=== PATIENT | female | born 1935 | race Caucasian/White ===

== ENCOUNTER 2020-05-09 16:37 | Emergency (ER) | payer MEDICARE, SELFPAY ==
[2020-05-09 16:39] VITALS: BP 167/85; PULSE 67; RESP 28; TEMP 36.7; O2SAT 97; BMI 40.8
--- NOTE | 2020-05-09 17:03 | EKG12_ITS ---
Test Reason : WEAKNESS Blood Pressure : / mmHG Vent. Rate : 062 BPM Atrial Rate : 062 BPM P-R Int : 214 ms QRS Dur : 148 ms QT Int : 506 ms P-R-T Axes : 082 066 075 degrees QTc Int : 513 ms Sinus rhythm with sinus arrhythmia with 1st degree A-V block Left bundle branch block Abnormal ECG Confirmed by GREG HAJI, KELLY ([id number]), editorial cartoonist NORA CRUZ ([id number]) on 05/11/2020 9:35:18 AM Referred By: RU/UG Confirmed By:BRONWYN GARZA MD
--- NOTE | 2020-05-09 17:11 | ED.DCSUM_ITS ---
History of Present Illness Chief Complaint: Dizziness Detail of Chief Complaint: Dizziness resulting in fall and right hip pain Informant: Patient, Family Onset: Hours Context: Sudden Onset Timing: Intermittent Quality: Spinning sensation that caused fall Location: Home Current Severity: Moderate Maximum Severity: Severe Worsened by: Hip pain is worse with any type of movement. The dizziness is no longer Relieved by: Nothing Associated Symptoms: Previously described Narrative: Patient is an 84-year-old woman who was walking out of her house. She was carrying 6 glass milk jugs. She became dizzy which she described as a spinning sensation. She also states the wind caught the door. She not want a fall on the glass and landed on her right side. Squad was called because she was unable to move without causing pain. She denied head trauma. Denies loss of conscious. Denies neck pain. Denies paresthesia, anesthesia motors upper lower extremity. Denies cardiac respiratory symptoms. She is on anticoagulant for atrial fibrillation. She denies black or maroon-colored stool. She denies blood in her urine. She denies bruising easily. Prior similar symptoms: No Recent Illness/Hospitalization: No - Past Medical History (1) Past medical history of congestive heart Status: Acute (2) History of hypertension Status: Acute (3) History of atrial fibrillation Status: Acute (4) halfway current use of anticoagulant Status: Acute (5) History of hyperlipidemia Status: Acute Past Medical History - Allergies and Home Meds Allergies/Adverse Reactions: Allergies metformin Allergy (Verified 05/09/20 16:44) Angioedema Penicillins [PCN] Allergy (Verified 05/09/20 16:44) Angioedema Primary Care Physician: [facility] Doctor,Out of [NON-STAFF] - Prior records reviewed: No Surgical History: noncontributory Lives: Alone Smoking Status: Never smoker Alcohol: None Drugs: None Review of Systems General: Denies: Chills, Fever, Malaise Eyes: Denies: Visual changes - bilaterally, Blurred Vision - bilaterally, Diplo sydni ENT: Denies: Rhinorrhea, Sore throat Cardiovascular: Denies: Chest pain, Palpitations Respiratory: Denies: Dyspnea, Cough, Dyspnea on exertion Gastrointestinal: Denies: Abdominal pain, Nausea, Vomiting, Melena, Hematochezia Genitourinary: Denies: Dysuria, Hematuria, Frequency Musculoskeletal: Reports: Extremity Pain. Denies: Myalgias, Arthralgias, Neck pain, Back pain, Swelling Skin: Reports: Wounds - Status post left breast mastectomy. Patient states she noted irritation/redness of prosthesis.. Denies: Rash Neurological: Denies: Headache, Weakness, Parasthesia Endocrine: Denies: Polyuria, Polydipsia Hematologic: Reports: Easy bruising. Denies: Easy bleeding Allergy: Denies: Uticaria Physical Exam Vital Signs/Narrative: Vital Signs Temp Pulse Resp BP Pulse Ox 05/09/20 16:39 98.0 F 67 28 H 167/85 H 97 Inital Vital Signs reviewed: Yes General: Well nourished, Well developed, Obese, Acute Distress Head: Normocephalic, Atraumatic, - - There are no clinical findings of basilar skull fracture. Eyes: Perrl, EOMI, - - There is no subconjunctival hemorrhage.. Negative for: Pale conjunctiva, Scleral icterus ENT: Moist mucous membranes, No rhinorrhea, TM's clear Neck: Supple, Nontender, No lymphadenopathy, No JVD, - - There is no pedal patient posteriorly over the cervical spinous process Cardiovascular: Regular rate, No murmurs, Irregular Respiratory: No distress, CTA bilaterally, Chest nontender, - - There is slight erythema left chest above incision site. Abdomen: Soft, Nontender, Nondistended, Normal bowel sounds Rectal: Deferred Back: Nontender Extremities: - - The right lower extremity is shortened and externally rotated. Skin: Normal color, No rash, Trauma - Abrasion over the right olecranon process. There is no pain the patient over the medial or lateral epicondyles. There is no pain the patient over the olecranon process. There is no pain the patient over the radial head with supination pronation.. Negative for: Cyanosis, Diaphoresis Neurological: Alert, Oriented x3, Cranial nerves II-XII grossly intact, Normal Strength, - - The eye askew test was negative. The hit test was negative. Finger-nose to finger was performed without past-pointing. There is no nystagmus was central gaze.. Negative for: Normal Gait Psychological: Normal affect Diagnostic/Tx/Re-eval Chest X-Ray - ED: 1 View, Read by ED Physician, Normal, Cardiomegaly, CHF, - - Review x-ray of the hip reveals a Garden type IV femoral neck fracture on the right. 05/09/20 17:02 Chest 1 View (Portable) [RAD] Stat 05/09/20 17:04 HIP, UNI W/ Pelvis 2-3 Views [RAD] Stat Laboratory Results 05/09/20 05/09/20 17:00 17:00 WBC 9.1 RBC 4.86 Hgb 13.0 Hct 41.2 MCV 84.8 MCH 26.7 L MCHC 31.6 L RDW Std Deviation 49.6 H RDW Coeff of Serjio 16.0 H Plt Count 242 MPV 10.1 Immature Gran % (Auto) 0.700 Neut % (Auto) 64.4 Lymph % (Auto) 24.3 Roberts % (Auto) 8.9 Eos % (Auto) 1.4 Baso % (Auto) 0.3 Absolute Neuts (auto) 5.9 Absolute Lymphs (auto) 2.21 Nucleated RBC % 0 Sodium 138 Potassium 3.6 Chloride 104 Carbon Dioxide 26.0 Anion Gap 8 BUN 25 H Creatinine 1.03 H Estim Creat Clear Calc 36.36 Est GFR (MDRD) Af Amer 66 Est GFR (MDRD) Non-Af 54 L BUN/Creatinine Ratio 24.3 H Glucose 230 H Calcium 8.9 CBC is unremarkable. Basic metabolic panel is remarkable glucose of 230. Patient does have history of diabetes. - EKG Initial EKG Interpretation: Sinus Rhythm - Sinus rhythm with a ventricular rate of 62 and evidence of a first-degree AV block. HI interval is 214 ms. Cures duration 148 ms and consistent with left bundle branch block. QT interval is 506 ms. - Medical Decision Making Patient presents with transient vertigo. Her cerebellar tests are normal. Unable to perform Radha-Hallpike maneuver and patient not able to sit up or ambulate due to presumed right hip fracture. CBC was obtained to rule out anemia. Blood work to rule out electrolyte abnormality. EKG to rule out cardiac ischemia. Daughter requests transfer to [facility]. With evidence of congestive heart failure on x-ray and history of congestive heart failure Duran was placed for accurate I's and O's. She was treated with Lasix as clinically she is fluid overloaded. Case was discussed with Rebeca and patient was accepted by Dr. Snell. Transferred ER to ER per [facility] policy. ED Disposition - Plan for ED Patient: Disposition: Acute Care Hospital - Other Diagnosis: Displaced fracture of right femoral neck, Acute exacerbation of congestive heart failure, Hyperglycemia due to diabetes mellitus Referrals: [facility] Doctor,Out of [NON-STAFF] -
[2020-05-09] MEDS: Ondansetron 4 MG/2 ML Vial IV ×2 (17:12→22:55)
[2020-05-09] MEDS: morphine 8 MG/ML Syringe 6 MG IV ×2 (17:12→19:30)
--- NOTE | 2020-05-09 17:16 | NURSING ---
NO OLD EKGS
[2020-05-09] MEDS: 0.9% Normal Saline 1,000 ML 150 ML IV (17:21)
[2020-05-09 17:41] LABS: Absolute Lymphocyte Count 2.21 X10^3/uL (0.83-4.51); Absolute Neutrophil Count 5.9 X10^3/uL (2.0-7.7); Basophil# 0.03 X10^3/uL; Basophil% 0.3 % (0-1); Eosinophil# 0.13 X10^3/uL; Eosinophils% 1.4 % (0-5); Hematocrit 41.2 % (37-47); Lymphocyte # 2.21 X10^3/ul (4.0); Lymphocyte % 24.3 % (19-41); Mean Corp Hgb Conc 31.6 g/dL (32-36); Mean Corpuscular Hgb 26.7 pg (27.0-32.0); Mean Corpuscular Volume 84.8 fL (81-99); Mean Platelet Vol. 10.1 fl (6.2-12.0); Monocyte# 0.81 X10^3/uL; Monocyte% 8.9 % (0-10); NRBC Flagged by Analyzer 0 % (0-5); Neutrophil # 5.86 X10^3/uL (2.7-7.7); Neutrophil % 64.4 % (47-70); Platelet Count 242 K/mm3 (150-450); RBC Distribution Width SD 49.6 fl (35.1-43.9); Red Blood Count 4.86 M/mm3 (4.2-5.4); White Blood Count 9.1 K/mm3 (4.4-11.0)
[2020-05-09 17:45] LABS: Anion Gap 8 (5-15); BUN 25 mg/dL (7-18); BUN/Creat Ratio 24.3 RATIO (10-20); Calcium,Total 8.9 mg/dL (8.5-10.1); Chloride 104 mmol/L (98-107); Creatinine, Serum 1.03 mg/dL (0.55-1.02); EST Glomerular Filtration Rate 54 mL/min (>60); Est Glom Filt Rate - Afr Amer 66 mL/min (>60); Estimated Creatinine Clearance 36.36 ml/min; Glucose 230 mg/dL (74-106); Potassium 3.6 mmol/L (3.5-5.1); Sodium Level 138 mmol/L (136-145)
--- NOTE | 2020-05-09 18:40 | RAD_ITS ---
INDICATION: Preop EXAMINATION/TECHNIQUE: X-RAY - XR Chest 1 View COMPARISON: None. FINDINGS: Median sternotomy wires present. Aortic valve and stent in place. Increased interstitial markings. Tortuous and calcified thoracic aorta. The heart is borderline enlarged. No pleural effusion or pneumothorax. Senescent changes of the bones. RAD/Chest 1 View (Portable) IMPRESSION: Increased interstitial markings may represent edema and/or infection. Electronically Signed: Simon Suarez MD at 19:10 EDT Tel , Service support ,
--- NOTE | 2020-05-09 18:40 | RAD_ITS ---
STUDY: X-RAY - PELVIS AND RIGHT HIP REASON FOR EXAM: Female, 84 years old. Pain. Injury. TECHNIQUE: 4 view(s) of the pelvis and right hip were obtained. COMPARISON: None. FINDINGS: There is a fracture of the right femoral neck. The remainder the visualized osseous structures are intact. There is no dislocation. There are no radiodense foreign bodies. RAD/HIP, UNI W/ Pelvis 2-3 Views IMPRESSION: Right femoral neck fracture. Electronically Signed: Luis Morris MD at 19:25 EDT Tel , Service support ,
[2020-05-09 19:20] VITALS: BP 161/84; PULSE 73; RESP 18; O2SAT 94
[2020-05-09] MEDS: Metoclopramide 10 MG/2 ML Vial 5 MG IV (19:30)
[2020-05-09] MEDS: Furosemide 40 MG/4 ML Vial IV (19:53)
[2020-05-09 21:05] VITALS: BP 142/74; PULSE 77; RESP 24; O2SAT 96
[2020-05-09] MEDS: Dofetilide 250 MCG Capsule PO (21:11)
[2020-05-09 21:32] VITALS: BP 157/85; PULSE 80; RESP 16; TEMP 36.9; O2SAT 93
[2020-05-09] MEDS: HYDROmorphone 0.5 MG/0.5 ML SYRINGE IV (22:55)
== END 2020-05-09 23:17 | disposition short-term general hospital (02) ==
PROVIDERS: Emergency Provider Emergency Medicine; PCP Internal Medicine
DX: S72.001A Fracture of unspecified part of neck of right femur, initial encounter for closed fracture (principal); S81.811A Laceration without foreign body, right lower leg, initial encounter; W18.39XA Other fall on same level, initial encounter; Y93.01 Activity, walking, marching and hiking; Y92.009 Unspecified place in unspecified non-institutional (private) residence as the place of occurrence of the external cause; Y99.8 Other external cause status; I11.0 Hypertensive heart disease with heart failure; I50.9 Heart failure, unspecified; I48.91 Unspecified atrial fibrillation; E11.65 Type 2 diabetes mellitus with hyperglycemia; E78.5 Hyperlipidemia, unspecified; E66.9 Obesity, unspecified; Z79.01 Long term (current) use of anticoagulants
CPT/HCPCS: 12002; 51702; 71045; 73502; 80048; 85025; 93005; 96361; 96374; 96375; 96376; 99285; J7030; A4216; J1940; J2405